=== PATIENT | male | born 1985 | race Two or more races ===

== ENCOUNTER 2023-01-17 22:03 | Emergency (ER) | payer SELFPAY ==
[~2023-01-17] VITALS: Ht 185.4 cm; Wt 152.0 kg
[2023-01-17 23:04] VITALS: BP 154/80; PULSE 66; RESP 16; TEMP 97.8; O2SAT 99
== END 2023-01-17 23:10 | disposition left against medical advice (07) ==
LOC: MED 22:03
DX: M79.10 Myalgia, unspecified site (principal); Z53.21 Procedure and treatment not carried out due to patient leaving prior to being seen by health care provider
CPT/HCPCS: 99281